=== PATIENT | female | born 1985 | race Caucasian/White ===

== ENCOUNTER 2020-04-25 12:17 | Inpatient (IN) ==
[2020-04-25] MEDS ORDERED: OXYTOCIN 30 UNITS/500 ML BAG IV PRN ×2 (13:12)
--- NOTE | 2020-04-25 13:18 | History & Physical Report ---
Date of Service April 25, 2020 Assessment & Plan (1) : 34 y/o G1 at 39w4d presenting with PROM, decreased FM VSS Fetus cat 2 but reassuring, improved with maternal resuscitation Labor - will augment with pitocin GBS neg Epidural PRN Present on Admission?: Yes (2) Beta thalassemia, heterozygous: CBC ordered per protocol T&S on admission for hx anemia Present on Admission?: Yes History of Present Illness Chief Complaint: Decreased FM, PROM Primary Care Provider: NO PCP 34 y/o G1 at 39w4d w/ EDC 04/28/20 by LMP 07/23/19 presenting with LOF since 1AM as well as decreased FM today. Has started feeling a little bit of movement since coming to L&D. Minimal contractions. -VB. 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, s/p heme consult - no intervention acutely, baby will need testing Hypothyroid s/p thyroidectomy CF carrier Anemia Allergies Allergy/AdvReac Type Severity Reaction Status Date / Time No Known Drug Allergies Allergy Verified 04/21/20 15:39 Home Medications Home Medications Medication Instructions Recorded Confirmed Type [id number]-[id number] 3-fat com #1 27 1 cap PO DAILY cap 05/29/19 04/25/20 History mg-1 mg-300 mg capsule cholecalciferol (vitamin D3) 50 2,000 units PO DAILY #30 tab 08/28/19 04/25/20 Rx mcg (2,000 unit) tablet ferrous gluconate 324 mg (38 mg 324 mg PO .COMPLEX #1 tab 10/21/19 04/25/20 Rx iron) tablet omega-3 fatty acids 1,250 mg 1,250 mg PO DAILY #30 cap 10/21/19 04/25/20 Rx capsule levothyroxine 200 mcg tablet 200 mcg PO DAILY #90 tab 11/17/19 04/25/20 Rx levothyroxine 25 mcg tablet 25 mcg PO DAILY #90 tab 12/15/19 04/25/20 Rx breast pump #1 ea 03/22/20 04/21/20 Rx Patient History Medical History Anemia Benitez anemia carrier Beta Thal Encounter for anatomic survey Hx of varicella Iatrogenic hyperthyroidism Post-surgical hypothyroidism Surgical History H/O thyroidectomy Hx of tonsillectomy [place] teeth removed Social History Smoking Status: Never smoker Second Hand Exposure: No; Do You Dip or Chew Tobacco: No; Tobacco Cessation Education Requested by Patient: No Hx Alcohol Use: No Hx Substance Use: No Preferred Language: [place] Communication Ability: Effective Technology Applications Teacher Required: No Beliefs That Will Affect Care: None marital status: marital status details: Moustapha (34) [phone] Current Living Situation: Spouse Current Living Situation Comment: lives with Spouse, no pets current occupational status: student current occupation: Grad student Other Information That Helps Us Care for You: No Feels Safe at Home: Yes Safety Concerns: Feels Safe At This Time Assistive Devices: None Physical Exam Constitutional: well developed and well nourished; no acute distress Respiratory: normal respiratory effort; no labored breathing Gastrointestinal (Abdomen): Percussion/Palpation: abdomen soft (gravid); abdomen nontender Genitourinary: Manual OB Exam: + cervical dilation 1 cm, + cervical effacement 50%, + station (-3) and + amniotic fluid (+pooling) nitrazine positive and ferning present OB Exam Monitor Tracing: + external uterine monitor used (irritability) and + category II (155/mod/+accel/+intermittent variables) Results & Data ([facility]) Vital Signs (Past 12 Hours) Vital Signs Pulse Resp BP 04/25/20 12:44 93 H 113/75 04/25/20 12:33 93 H 16 110/74 04/25/20 12:27 126 H 110/74 Laboratory Results AB+ Rubella imm RPR NR Hep B neg HIV neg -cfDNA, MSAFP, SMA +CF carrier +betal thal carrier Code Status & VTE Plan VTE Prophylaxis Plan VTE Prophylaxis will be ordered: Yes Coding Level of Care Code None Diagnoses Z34.90 Beta thalassemia, heterozygous D56.3
[2020-04-25 13:30] LABS: Hemoglobin 10.3 g/dL (12.0-16.0); Mean Corpuscular Hemoglobin 21.2 pg (25-34); Mean Corpuscular Hgb Conc 32.2 g/dL (32-36); Mean Corpuscular Volume 65.8 fL (80-100); Platelet Count 152 K/uL (130-400); RDW Coefficient of Variation 14.8 % (11.5-14.5); RDW Standard Deviation 34.4 fL (36.4-46.3); Red Blood Count 4.86 M/uL (4.2-5.4); White Blood Count 8.21 K/uL (4.8-10.8)
[2020-04-25] MEDS: LACTATED RINGER'S 1,000 ML IV PRN ×3 (13:35→22:48)
--- NOTE | 2020-04-25 15:42 | Labor Progress Brief Note ---
Date of Service April 25, 2020 Subjective Bouncing on peanut ball, comfortable Assessment & Plan (1) : 34 y/o G1 at 39w4d presenting with PROM, decreased FM VSS Fetus cat 1 Labor - pit at 4, continue to titrate GBS neg Epidural PRN (2) Beta thalassemia, heterozygous: CBC ordered per protocol T&S on admission for hx anemia Admission and Anticipated Discharge Date Admission Date: April 25, 2020 Physical Exam Constitutional: well developed and well nourished; no acute distress Genitourinary: OB Exam Monitor Tracing: + external FHT monitor used, + external uterine monitor used (q3min) and + category I (145/mod/+accel/-decel) Results & Data ([facility]) Vital Signs (Past 12 Hours) Vital Signs Pulse Resp BP 04/25/20 15:00 77 108/52 L 04/25/20 12:44 93 H 113/75 04/25/20 12:33 93 H 16 110/74 04/25/20 12:27 126 H 110/74 Coding Level of Care Code None Diagnoses Z34.90 Beta thalassemia, heterozygous D56.3
--- NOTE | 2020-04-25 17:17 | Labor Progress Brief Note ---
Date of Service April 25, 2020 Subjective Contractions more uncomfortable Assessment & Plan (1) : 34 y/o G1 at 39w4d presenting with PROM, decreased FM VSS Fetus cat 1 Labor - pit at 5, continue to titrate GBS neg Epidural PRN (2) Beta thalassemia, heterozygous: CBC ordered per protocol T&S on admission for hx anemia Admission and Anticipated Discharge Date Admission Date: April 25, 2020 Physical Exam Genitourinary: Manual OB Exam: + cervical dilation 2 cm, + cervical effacement 50% and + station (-3) OB Exam Monitor Tracing: + external FHT monitor used, + external uterine monitor used (q4-5) and + category I (145/mod/+accel/-decel) Results & Data ([facility]) Vital Signs (Past 12 Hours) Vital Signs Pulse Resp BP 04/25/20 16:57 90 113/66 04/25/20 16:03 71 113/66 04/25/20 15:00 77 108/52 L 04/25/20 12:44 93 H 113/75 04/25/20 12:33 93 H 16 110/74 04/25/20 12:27 126 H 110/74 Coding Level of Care Code None Diagnoses Z34.90 Beta thalassemia, heterozygous D56.3
[2020-04-25] MEDS ORDERED: BUPIVACAINE 0.25% 30 ML VIAL ONE (21:46)
[2020-04-25] MEDS ORDERED: ePHEDrine sulfate 50 MG/ML AMP ONE (21:46)
[2020-04-25] MEDS ORDERED: fentaNYL citrate 100 MCG/2 ML VIAL ONE (21:46)
[2020-04-25] MEDS ORDERED: fentaNYL 2MCG/ML ROPIV 1.25MG/ML 100 ML BAG EPI ONE (21:47)
--- NOTE | 2020-04-25 21:53 | Labor Progress Brief Note ---
Date of Service April 25, 2020 Subjective Contractions more uncomfortable Assessment & Plan (1) : 34 y/o G1 at 39w4d presenting with PROM, decreased FM VSS Fetus cat 1 Labor - pit at 6, continue to titrate GBS neg Epidural - pt desires epidural now (2) Beta thalassemia, heterozygous: CBC ordered per protocol T&S on admission for hx anemia Admission and Anticipated Discharge Date Admission Date: April 25, 2020 Physical Exam Genitourinary: Manual OB Exam: + cervical dilation 3 cm, + cervical effacement 70% and + station (-3) OB Exam Monitor Tracing: + external FHT monitor used, + external uterine monitor used (q3-6) and + category I (145/mod/+accel/-decel) Results & Data ([facility]) Vital Signs (Past 12 Hours) Vital Signs Temp Pulse Resp BP 04/25/20 21:02 97.7 F 76 111/64 04/25/20 20:00 18 04/25/20 19:59 75 121/82 04/25/20 19:01 97.7 F 04/25/20 18:58 71 115/66 04/25/20 18:19 69 99/56 L 04/25/20 18:00 70 106/71 04/25/20 16:57 90 113/66 04/25/20 16:03 98.2 F 71 18 113/66 04/25/20 15:00 98.8 F 77 18 108/52 L 04/25/20 12:44 98.8 F 93 H 16 113/75 04/25/20 12:33 93 H 16 110/74 04/25/20 12:27 126 H 110/74 Coding Level of Care Code None Diagnoses Z34.90 Beta thalassemia, heterozygous D56.3
[2020-04-25] MEDS ORDERED: ONDANSETRON INJ 2 MG/ML 2 ML VIAL IV PRN (22:41)
[2020-04-25] MEDS ORDERED: DiphenhydrAMINE HCL 50 MG/ML VIAL IV PRN (22:41)
[2020-04-25] MEDS ORDERED: NALOXONE HCL 1 MG in SODIUM CHLORIDE 0.9% 1000ML 1,000 ML IV PRN (22:41)
[2020-04-25] MEDS ORDERED: fentaNYL 2MCG/ML ROPIV 1.25MG/ML 100 ML BAG EPI PRN (22:41)
[2020-04-25] MEDS ORDERED: ePHEDrine sulfate 50 MG/ML AMP IV PRN (22:41)
[2020-04-25] MEDS ORDERED: NALOXONE HCL 0.4 MG/1 ML VIAL/CARP IV PRN (22:41)
--- NOTE | 2020-04-25 22:48 | Anesthesiology Consultation ---
Date of Service April 25, 2020 Covid 19 negative on 04/19/20. Assessment & Plan Chart Review Chart Review: Patient NOT seen in Pre Admission Testing and Acceptable Risk for Labor Epidural Consults Requested none ASA ASA2 Proposed Anesthesia Anesthesia Type: Labor Epidural and CSE Risk / Benefits Reviewed With: PT / POA / Parent / Guardian, Accepts Plan and Informed Consent Obtained History Height/Weight Weight: 87 kg Allergies Allergy/AdvReac Type Severity Reaction Status Date / Time No Known Drug Allergies Allergy Verified 04/21/20 15:39 Medications Home Medications Medication Instructions Recorded Confirmed Last Taken ZCC-evai-OC-omega 3-fat com #1 27 1 cap PO DAILY cap 05/29/19 04/25/20 04/24/20 mg-1 mg-300 mg capsule cholecalciferol (vitamin D3) 50 2,000 units PO DAILY #30 tab 08/28/19 04/25/20 04/24/20 mcg (2,000 unit) tablet ferrous gluconate 324 mg (38 mg 324 mg PO .COMPLEX #1 tab 10/21/19 04/25/20 04/23/20 iron) tablet omega-3 fatty acids 1,250 mg 1,250 mg PO DAILY #30 cap 10/21/19 04/25/20 04/24/20 capsule levothyroxine 200 mcg tablet 200 mcg PO DAILY #90 tab 11/17/19 04/25/20 04/25/20 08:30 levothyroxine 25 mcg tablet 25 mcg PO DAILY #90 tab 12/15/19 04/25/20 04/25/20 08:30 breast pump #1 ea 03/22/20 04/21/20 Unknown Active Medications Generic Name Dose Route Start Last Admin Trade Name Freq PRN Reason Stop Dose Admin Lactated Ringer's 1,000 mls @ 125 mls/hr 04/25/20 13:12 04/25/20 22:48 Lr IV 04/27/20 13:11 125 mls/hr .Q8H PRN Administration L&D Protocol Protocol Oxytocin 30 units in 500 mls @ 6 mls/hr 04/25/20 13:12 04/25/20 20:40 Pitocin IV 04/27/20 13:11 0.36 units/hr .Q24H PRN 6 mls/hr Labor Induction/Augmentation Titration Protocol 0.36 UNITS/HR NPO Date Last Intake of Fluids: 04/25/20 Time Last Intake of Fluids: 21:00 Date Last Intake of Solids: 04/25/20 Time Last Intake of Solids: 09:00 Past Medical History Medical History Anemia Benitez anemia carrier Beta Thal Encounter for anatomic survey Hx of varicella Iatrogenic hyperthyroidism Post-surgical hypothyroidism Thalassemia carrier Exercise / Class Metabolic Activity II 4-5 Yardwork/Stairs/Walk up hill Past Surgical History Surgical History H/O thyroidectomy History of breast augmentation Hx of tonsillectomy [place] teeth removed Past Anesthesia History No Hx of Anesthesia Complications and No Family Hx of Anesthesia Complications History of PONV No Hx of PONV and No Hx of Motion Sickness Social History Smoking Status: Never smoker Do You Dip or Chew Tobacco: No Hx Alcohol Use: No Hx Substance Use: No Review of Systems no chest pain or sob Physical Exam Vital Signs Last Vital Signs Temp 36.5 C 04/25/20 21:02 Pulse 84 04/25/20 22:41 Resp 18 04/25/20 22:30 BP 111/73 04/25/20 22:20 Pulse Ox 100 04/25/20 22:41 ENMT Mouth: no TMJ abnormality Thyromental Distance: > or= 3.5 Finger Breadths Mallampati Class: II Neck normal visual inspection Respiratory normal respiratory effort Auscultation: lungs clear to auscultation bilaterally Cardiovascular Rate/Rhythm: regular rate and regular rhythm Musculoskeletal Spine: normal cervical ROM Neurologic moves all extremities Psychiatric Orientation: alert and oriented x 3 Testing Laboratory Results 04/25/20 13:18 Blood Type AB Positive 04/25/20 13:18 Antibody Screen NEGATIVE 04/25/20 13:18
[2020-04-26] MEDS: LACTATED RINGER'S 1,000 ML IV PRN (02:45)
[2020-04-26] MEDS ORDERED: LIDOCAINE/EPINEPHRINE 2% 1:200,000 20 ML SDV ONE (03:20)
[2020-04-26] MEDS ORDERED: fentaNYL citrate 100 MCG/2 ML VIAL ONE (03:21)
[2020-04-26] MEDS ORDERED: CITRIC ACID/SODIUM CITRATE 15 ML UDC ONE (03:21)
[2020-04-26] MEDS ORDERED: MoRPHine SULFATE PF 1 MG/ML 10 ML AMP/VIAL ONE (03:23)
[2020-04-26] MEDS ORDERED: AZITHROMYCIN 500 MG in DEXTROSE 5% 250 ML IV STA (03:23)
[2020-04-26] MEDS ORDERED: OXYTOCIN 10 UNITS/ML VIAL ONE ×2 (03:24→04:17)
--- NOTE | 2020-04-26 03:26 | Labor Progress Brief Note ---
Date of Service April 26, 2020 Subjective Comfortable with epidural, however recurrent late decels noted despite resuscitation during augmentation Assessment & Plan (1) : At this point, fetus has resuscitated following d/c of pit however discussed with patient that this is second time that pit has been d/c'd due to significant decel and in between, while on pit of 2-3, has still had lates despite maternal resuscitation. Recommend CS due to inability to augment and NRFHT remote from delivery. Risks including infection, bleeding, injury to adjacent structures reviewed and patient verbalized understanding. Pt and hu sband given ampl time for questions and they were answered to their satisfaction. Pitocin d/c'd. Consent reviewed and signed, anesthesia and peds made aware. Admission and Anticipated Discharge Date Admission Date: April 25, 2020 Physical Exam Physical Exam: AAO x 3, NAD Unlabored respirations SVE 3/75/-3 EFM 150/min-mod/-accels/repetitive late decels with contractions at pit of 2 and 3 with 2 large decels requiring discontinuation of pit for resuscitation Results & Data ([facility]) Vital Signs (Past 12 Hours) Vital Signs Temp Pulse Resp BP Pulse Ox 04/26/20 03:21 78 100 04/26/20 03:16 81 100 04/26/20 03:11 81 100 04/26/20 03:07 82 139/79 04/26/20 03:06 83 100 04/26/20 03:01 83 100 04/26/20 02:56 98 H 100 04/26/20 02:51 80 97 04/26/20 02:46 95 H 98 04/26/20 02:41 78 97 04/26/20 02:38 91 H 107/64 04/26/20 02:36 81 97 04/26/20 02:35 98.4 F 04/26/20 02:31 70 97 04/26/20 02:30 18 04/26/20 02:26 78 97 04/26/20 02:24 75 97/52 L 04/26/20 02:21 71 98 04/26/20 02:16 82 98 04/26/20 02:11 77 97 04/26/20 02:09 74 101/53 L 04/26/20 02:06 80 98 04/26/20 02:01 88 98 04/26/20 02:00 18 04/26/20 01:56 91 H 96 04/26/20 01:52 82 92/54 L 04/26/20 01:51 84 97 04/26/20 01:46 79 96 04/26/20 01:41 79 96 04/26/20 01:36 79 96 04/26/20 01:31 80 96 04/26/20 01:30 18 04/26/20 01:26 89 97 04/26/20 01:22 68 110/55 L 04/26/20 01:21 70 97 04/26/20 01:16 69 97 04/26/20 01:11 75 97 04/26/20 01:08 72 112/59 L 04/26/20 01:06 72 97 04/26/20 01:03 98.6 F 04/26/20 01:01 68 97 04/26/20 01:00 18 04/26/20 00:56 74 97 04/26/20 00:53 71 105/56 L 04/26/20 00:51 65 100 04/26/20 00:46 68 100 04/26/20 00:41 68 100 04/26/20 00:38 66 103/57 L 04/26/20 00:36 71 100 04/26/20 00:31 69 100 04/26/20 00:30 18 04/26/20 00:26 68 100 04/26/20 00:23 68 106/58 L 04/26/20 00:21 69 100 04/26/20 00:16 69 100 04/26/20 00:11 66 100 04/26/20 00:07 68 109/56 L 04/26/20 00:06 70 100 04/26/20 00:01 71 100 04/26/20 00:00 69 18 110/59 L 04/25/20 23:56 72 100 04/25/20 23:55 71 109/56 L 04/25/20 23:51 77 105/52 L 100 04/25/20 23:46 83 98 04/25/20 23:41 73 97 04/25/20 23:40 71 101/56 L 04/25/20 23:37 73 98/57 L 04/25/20 23:36 77 98 04/25/20 23:31 76 99/57 L 98 09/28/20 23:30 18 04/25/20 23:27 80 107/65 04/25/20 23:26 83 98 04/25/20 23:21 88 104/55 L 97 04/25/20 23:16 93 H 98 04/25/20 23:15 96 H 18 109/60 04/25/20 23:13 86 99/52 L 04/25/20 23:11 86 91/52 L 98 04/25/20 23:10 83 18 100/53 L 04/25/20 23:07 83 99/59 L 04/25/20 23:06 87 97 04/25/20 23:05 86 18 99/66 L 04/25/20 23:03 97.5 F L 85 107/62 04/25/20 23:01 85 110/58 L 95 04/25/20 23:00 96 H 18 93 04/25/20 22:59 80 107/58 L 04/25/20 22:57 89 113/61 04/25/20 22:56 84 100 04/25/20 22:55 78 114/64 04/25/20 22:51 88 100 04/25/20 22:49 88 94 04/25/20 22:46 81 99 04/25/20 22:41 84 100 04/25/20 22:36 84 94 04/25/20 22:31 82 100 04/25/20 22:30 18 04/25/20 22:27 90 94 04/25/20 22:26 83 100 04/25/20 22:21 100 H 100 04/25/20 22:20 86 111/73 94 04/25/20 22:16 92 H 100 04/25/20 21:02 97.7 F 76 111/64 04/25/20 20:00 18 04/25/20 19:59 75 121/82 04/25/20 19:01 97.7 F 04/25/20 18:58 71 115/66 04/25/20 18:19 69 99/56 L 04/25/20 18:00 70 106/71 04/25/20 16:57 90 113/66 04/25/20 16:03 98.2 F 71 18 113/66 Coding Level of Care Code None Diagnoses Z34.90
[2020-04-26] MEDS ORDERED: KETOROLAC 30 MG/ML VIAL IV PRN (03:28)
[2020-04-26] MEDS ORDERED: MoRPHine SULFATE PF 1 MG/ML 10 ML AMP/VIAL EPI ONE (03:28)
[2020-04-26] MEDS ORDERED: ePHEDrine sulfate 50 MG/ML AMP IV PRN (03:28)
[2020-04-26] MEDS ORDERED: DiphenhydrAMINE HCL 50 MG/ML VIAL IV PRN ×2 (03:28→21:29)
[2020-04-26] MEDS ORDERED: LACTATED RINGER'S 500 ML IV PRN (03:28)
[2020-04-26] MEDS ORDERED: HYDROmorphone INJ 0.5 MG/0.5 ML SYR IV PRN (03:28)
[2020-04-26] MEDS ORDERED: NALOXONE HCL 0.08 MG in SYRINGE 1.8 ML IV PRN (03:28)
[2020-04-26] MEDS ORDERED: NALOXONE HCL 0.4 MG/1 ML VIAL/CARP IV PRN (03:28)
[2020-04-26] MEDS ORDERED: NALOXONE HCL 1 MG in SODIUM CHLORIDE 0.9% 1000ML 1,000 ML IV PRN (03:28)
[2020-04-26] MEDS ORDERED: ONDANSETRON INJ 2 MG/ML 2 ML VIAL IV PRN ×2 (03:28→21:28)
[2020-04-26] MEDS ORDERED: CEFAZOLIN 2000MG 2,000 MG/15 ML SYR IV SCH ×2 (03:30→06:00)
[2020-04-26] MEDS ORDERED: SODIUM CHLORIDE 0.9% 1000ML 1,000 ML IV SCH (03:30)
[2020-04-26] MEDS ORDERED: DC INTRASPINAL MORPHINE SCH (03:30)
[2020-04-26] MEDS ORDERED: NO NARCOTICS OR SEDATIVES SCH (03:30)
[2020-04-26] MEDS ORDERED: CITRIC ACID/SODIUM CITRATE 15 ML UDC PO SCH ×2 (03:30→06:00)
[2020-04-26] MEDS ORDERED: ONDANSETRON INJ 2 MG/ML 2 ML VIAL ONE (03:50)
[2020-04-26] MEDS ORDERED: PHENYLEPHRINE 100MCG/ML 5ML SYR ONE (03:50)
--- NOTE | 2020-04-26 05:40 | Operative Report ---
PG Post Operative Report Pre & Post Diagnosis Operation Date: 04/26/20 03:00 Pre-Op Diagnosis: Inability to augment; nonreassuring heart rate; remote from delivery Post-Op Diagnosis: Inability to augment; nonreassuring heart rate; delivery of a live male child at 0413 I identified the patient and participated in the time-out.: Yes Procedure Operation Date: 04/26/20 03:00 Actual Procedures p Section in LD(Bilateral) - Angie Tovar MD Surgeon Angie Tovar MD Sign Erector None Estimated Blood Loss 800 Findings Consistent with Post-Op Diagnosis Normal appearing bilateral fallopian tubes and ovaries. Uterus was within normal limits with small serosal fibroid noted posteriorly. Viable male weight 8lb and 0.2ozs, APGARS of 9 and 9 and 1 and 5 minutes, respectively Specimens Placenta Drains [place] Anesthesia Type L&D Only Epidural Exists Complications none Disposition Accompanied Patient To Recovery: Yes Disposition: L&D Indications Gio is a 34 y/o G1 at 39w5d who presented 1 day ago with complaints of leaking of fluid and decreased movement. On admission she was found to have prelabor rupture of membranes and cervical exam was 1/50/-3. resuscitation was performed and category 1 tracing was achieved. Augmentation was initiated with oxytocin. She received an epidural for pain control and progressed to approximately 3cm. Approximately an hour following the epidural, cat 2 tracing was noted with late decels. There was subsequently a large decel requiring oxytocin to be discontinued. Following resuscitation, pitocin was able to be restarted but could not be titrated past 3 due to late decels. There was again a significant deceleration necessitating the discontinuation of oxytocin for resuscitation. Repeat exam demonstrated unchanged cervical exam. Given inability to augment and NRFHT remote from delivery, recommendation for was had with the patient. Indications, risks, benefits, alternatives to the procedure were reviewed with the patient and her . They were given ample time for questions and answered to their satisfaction. Consents were signed. Description of Procedure The patient was taken to the operating room after consents were ensured. The patient was properly identified. Spinal anesthesia was obtained without difficulty with monitoring in place. The patient was placed in a dorsal supine position with left lateral tilt. The patient was prepped and draped in normal sterile fashion. Anesthesia was tested to ensure adequate surgical levels. Pfannenstiel skin incision was performed and carried down to the underlying fascia with a knife. The fascia was then nicked in the midline and extended laterally with pickcharissa and Hidalgo scissors. The superior portion of the fascia was grasped with Kochers x2 and elevated off the underlying rectus muscles using blunt dissection. The inferior portion of the fascia was then grasped with Eliseo clamps x2 and also elevated off the underlying muscles with blunt dissection. Midline was then identified. The peritoneum was then entered and extended to provide adequate room for delivery of baby. The hand was inserted into the abdomen, uterus was noted to be clear of adhesions. Bladder blade was inserted. A low transverse uterine incision was then made in the uterus and extended bluntly in a superior to inferior fashion. head was grasped and elevated through the hysterotomy in an atraumatic fashion. The baby delivered in SHERIF position, no nuchal cord. Remainder of the body delivered without incident. Nose and mouth were bulb suctioned on the surgical field. Delayed cord clamping was performed for 30 seconds. The cord was double clamped and cut and baby was handed off to awaiting replanting machine operator. Cord segment and blood were obtained. Placenta was then expressed from the uterus. The uterus was exteriorized. Several passes were made inside the uterus to remove the remaining membranes. Attention was then turned to the hysterotomy, which was then closed with a running locked suture of 0 Vicryl on a CTX needle. An imbricating layer was then performed with 0 Monocryl. There was noted to be excellent hemostasis. The posterior cul-de-sac was then inspected and irrigated and cleaned of clot and debris. The hysterotomy was again inspected and noted to be hemostatic. The uterus was returned to the abdomen. The right and left pericolic gutters were cleaned of all clot and debris. The hysterotomy was again noted to be hemostatic. Space of Retzius was noted to be hemostatic. The fascia was then closed with a running suture of 0 Vicryl on a CT1 needle. Subcutaneous tissue was copiously irrigated and noted to be hemostatic. Subcutaneous tissue was reapproximated using 2-0 plain gut. The skin was then closed with a running suture of 4-0 Monocryl in a subcuticular fashion. At termination of the procedure, the fundal pressure was applied and a moderate amount of lochia was expressed. Pressure dressing was applied to the patient. She tolerated the procedure well. All sponge, needle, and instrument counts were correct x 2 I attest to the content of the Intraoperative Record and any orders documented therein. Any exceptions are noted below.
[2020-04-26] MEDS ORDERED: HYDROCORTISONE ACETATE 25 MG SUPP PR PRN (06:00)
[2020-04-26] MEDS ORDERED: BENZOCAINE 20% AER SPR 82.5 GM CAN EXT PRN (06:00)
[2020-04-26] MEDS ORDERED: DIPHTHERIA/TETANUS/PERTUSSIS 0.5 ML SYR/VIAL IM ONE (06:00)
[2020-04-26] MEDS ORDERED: SUPERCREAM 0.870% 15 GM JAR EXT PRN (06:00)
[2020-04-26] MEDS ORDERED: SENNA 8.6 MG TAB PO PRN (06:00)
[2020-04-26] MEDS ORDERED: LACTATED RINGER'S 1,000 ML IV SCH (06:00)
[2020-04-26] MEDS ORDERED: MAGNESIUM HYDROXIDE SUSP 30 ML UDC PO PRN (06:00)
--- NOTE | 2020-04-26 06:01 | Anesthesiology Progress Note ---
Date of Service April 26, 2020 Anesthesia Post Procedure Vital Signs Vital Signs: Temp Pulse Resp BP Pulse Ox 04/26/20 05:59 89 99 04/26/20 05:55 76 109/68 04/26/20 05:54 80 99 04/26/20 05:49 93 H 100 04/26/20 05:45 93 H 18 123/70 04/26/20 05:44 99 H 100 04/26/20 05:39 104 H 99 04/26/20 05:37 87 113/58 L 04/26/20 05:35 18 04/26/20 05:34 94 H 100 04/26/20 05:31 95 H 91 04/26/20 05:29 82 100 04/26/20 05:25 81 16 111/57 L 04/26/20 05:24 84 100 04/26/20 05:19 89 99 04/26/20 05:15 86 18 97/52 L 88 L 04/26/20 05:14 99 H 77/47 L 100 04/26/20 05:09 84 100 04/26/20 05:05 36.3 C L 95 H 18 98/60 L 04/26/20 05:04 98 H 97 04/26/20 03:36 103 H 100 04/26/20 03:31 90 100 04/26/20 03:30 18 04/26/20 03:26 80 100 04/26/20 03:21 78 100 04/26/20 03:16 81 100 04/26/20 03:11 81 100 04/26/20 03:07 82 139/79 04/26/20 03:06 83 100 04/26/20 03:01 83 100 04/26/20 03:00 18 04/26/20 02:56 98 H 100 04/26/20 02:51 80 97 04/26/20 02:46 95 H 98 04/26/20 02:41 78 97 04/26/20 02:38 91 H 107/64 04/26/20 02:36 81 97 04/26/20 02:35 36.9 C 04/26/20 02:31 70 97 04/26/20 02:30 18 04/26/20 02:26 78 97 04/26/20 02:24 75 97/52 L 04/26/20 02:21 71 98 04/26/20 02:16 82 98 04/26/20 02:11 77 97 04/26/20 02:09 74 101/53 L 04/26/20 02:06 80 98 04/26/20 02:01 88 98 04/26/20 02:00 18 04/26/20 01:56 91 H 96 04/26/20 01:52 82 92/54 L 04/26/20 01:51 84 97 04/26/20 01:46 79 96 04/26/20 01:41 79 96 04/26/20 01:36 79 96 04/26/20 01:31 80 96 04/26/20 01:30 18 04/26/20 01:26 89 97 04/26/20 01:22 68 110/55 L 04/26/20 01:21 70 97 04/26/20 01:16 69 97 04/26/20 01:11 75 97 04/26/20 01:08 72 112/59 L 04/26/20 01:06 72 97 04/26/20 01:03 37.0 C 04/26/20 01:01 68 97 04/26/20 01:00 18 04/26/20 00:56 74 97 04/26/20 00:53 71 105/56 L 04/26/20 00:51 65 100 04/26/20 00:46 68 100 04/26/20 00:41 68 100 04/26/20 00:38 66 103/57 L 04/26/20 00:36 71 100 04/26/20 00:31 69 100 04/26/20 00:30 18 04/26/20 00:26 68 100 04/26/20 00:23 68 106/58 L 04/26/20 00:21 69 100 04/26/20 00:16 69 100 04/26/20 00:11 66 100 04/26/20 00:07 68 109/56 L 04/26/20 00:06 70 100 04/26/20 00:01 71 100 04/26/20 00:00 69 18 110/59 L 04/25/20 23:56 72 100 04/25/20 23:55 71 109/56 L 04/25/20 23:51 77 105/52 L 100 04/25/20 23:46 83 98 04/25/20 23:41 73 97 04/25/20 23:40 71 101/56 L 04/25/20 23:37 73 98/57 L 04/25/20 23:36 77 98 04/25/20 23:31 76 99/57 L 98 04/25/20 23:30 18 04/25/20 23:27 80 107/65 04/25/20 23:26 83 98 04/25/20 23:21 88 104/55 L 97 04/25/20 23:16 93 H 98 04/25/20 23:15 96 H 18 109/60 04/25/20 23:13 86 99/52 L 04/25/20 23:11 86 91/52 L 98 04/25/20 23:10 83 18 100/53 L 04/25/20 23:07 83 99/59 L 04/25/20 23:06 87 97 04/25/20 23:05 86 18 99/66 L 04/25/20 23:03 36.4 C L 85 107/62 04/25/20 23:01 85 110/58 L 95 04/25/20 23:00 96 H 18 93 04/25/20 22:59 80 107/58 L 04/25/20 22:57 89 113/61 04/25/20 22:56 84 100 04/25/20 22:55 78 114/64 04/25/20 22:51 88 100 04/25/20 22:49 88 94 04/25/20 22:46 81 99 04/25/20 22:41 84 100 04/25/20 22:36 84 94 04/25/20 22:31 82 100 04/25/20 22:30 18 04/25/20 22:27 90 94 04/25/20 22:26 83 100 04/25/20 22:21 100 H 100 04/25/20 22:20 86 111/73 94 04/25/20 22:16 92 H 100 04/25/20 21:02 36.5 C 76 111/64 04/25/20 20:00 18 04/25/20 19:59 75 121/82 04/25/20 19:01 36.5 C 04/25/20 18:58 71 115/66 04/25/20 18:19 69 99/56 L 04/25/20 18:00 70 106/71 04/25/20 16:57 90 113/66 04/25/20 16:03 36.8 C 71 18 113/66 04/25/20 15:00 37.1 C 77 18 108/52 L 04/25/20 12:44 37.1 C 93 H 16 113/75 04/25/20 12:33 93 H 16 110/74 04/25/20 12:27 126 H 110/74 Pain Intensity Lower Medial Back: Pain Intensity: 2 Lower Abdomen: Pain Intensity: 2 Transfer of Care Handoff Completed per policy Notes Mental Status: alert / awake / arousable Patient Amnestic to Procedure: Yes Nausea / Vomiting: adequately controlled Pain: adequately controlled Airway Patency, RR, SpO2: stable & adequate BP & HR: stable & adequate Hydration State: stable & adequate Neuraxial Anesthesia: was administered and sensory block is resolving Anesthetic Complications: no major complications apparent and Pt Satisfied with anesthetic care
[2020-04-26] MEDS ORDERED: Nursing to Pharmacy Communication SCH (06:30)
[2020-04-26] MEDS ORDERED: OXYTOCIN 20 UNITS in LACTATED RINGER'S 1,000 ML IV SCH (06:30)
[2020-04-26] MEDS: LEVOTHYROXINE SODIUM 25 MCG TABLET PO SCH (07:04)
[2020-04-26] MEDS: LEVOTHYROXINE SODIUM 200 MCG TABLET PO SCH (07:05)
[2020-04-26] MEDS: FERROUS SULFATE 325 MG TAB PO SCH (08:51)
[2020-04-26] MEDS: PRENATAL VITAMIN 1 TAB PO SCH (08:51)
[2020-04-26] MEDS: SIMETHICONE 80 MG CHEW PO SCH ×4 (08:51→20:35)
[2020-04-26] MEDS: DOCUSATE SODIUM 100 MG CAP PO SCH ×2 (08:51→20:35)
--- NOTE | 2020-04-26 15:14 | Obstetrical Progress Note ---
Date of Service April 27, 2020 Assessment & Plan (1) : S/p elective CS for NRFHT and inability to augment, Day 1 - Feels well today. Eating well, voiding well, ambulating well. - Pain well-controlled with analgesics. - Vital signs reviewed and WNL. - Hemoglobin reviewed. 10.3 --> 7.8 (today). - Blood Type: AB+, antibody negative, GBS negative, Rubella Immune, COVID-19 negative - Continue routine post-operative care: encourage ambulation, monitor and control pain with Motrin PRN, advance diet as tolerated, monitor lochia - Encourage breast feeding. - After discharge, will have 6-wk follow-up with Dr. Tovar Admission and Anticipated Discharge Date Admission Date: April 25, 2020 Supervising Physician Co-Signing Physician Notes Resident Physician Supervision Note: I was present with [Don] during the history and exam. I discussed the case with the resident and agree with the findings and plan as documented in the note. Any exceptions or clarifications are listed here: [None] Documented By: Shannon Gerber MD, FACOG Subjective HPI Gio Caicedo is a 34 y/o female who is POD 1 following elective c- section delivery at 39 5/7 weeks for NRFHT and inability to augment with Pitocin due to recurrent late decelerations. She reports feeling well overall this morning. mild abdominal cramping and 2-3/10 pain well managed on analgesics. Voiding well. Tolerating full liquid diet overnight without difficulty. Patient has been able to ambulate some. passing gas and no bowel movement. Has persistent lochia with some improvement this morning. Currently . Review of Systems Review of Systems: ROS Denies fever or chills. Denies shortness of breath or cough. Denies chest pain. Denies breast pain. Denies dysuria. Denies leg pain or leg swelling. Denies headache or changes in vision. Physical Exam Physical Exam: PE General: Alert, oriented. No acute distress. Cardiac: Regular rate and rhythm. No murmurs. Respiratory: Clear to auscultation bilaterally a/p, no wheezes/rales/rhonchi. No increased work of breathing. Symmetrical chest rise. No respiratory distress. Abdomen: Soft, nontender, nondistended. Bowel sounds present. Uterus: Uterine fundus firm, palpable at umbilicus. Surgical scar clean and healing well. Lower Extremities: No lower extremity edema or swelling. No deep calf pain. Ronald's negative bilaterally. Results & Data ([facility]) Vital Signs (Past 12 Hours) Vital Signs Temp Pulse Pulse Resp BP BP Pulse Ox 04/26/20 14:30 16 96 04/26/20 13:35 18 96 04/26/20 12:35 18 95 04/26/20 11:50 36.7 C 76 16 96/54 L 96 04/26/20 11:38 16 96 04/26/20 10:35 16 95 04/26/20 09:35 16 98 04/26/20 08:35 37.1 C 82 18 109/68 98 04/26/20 07:40 36.8 C 78 16 105/68 95 04/26/20 07:24 81 101/61 98 04/26/20 07:20 36.8 C 18 04/26/20 07:19 80 98 04/26/20 07:17 75 94 04/26/20 07:14 78 99/56 L 97 04/26/20 07:09 92 H 99 04/26/20 07:04 85 105/66 99 04/26/20 06:59 79 98 04/26/20 06:54 78 106/58 L 97 04/26/20 06:49 75 95 04/26/20 06:44 81 110/72 99 04/26/20 06:39 82 100 04/26/20 06:34 79 18 114/76 100 04/26/20 06:29 125 H 99 04/26/20 06:24 77 106/71 100 04/26/20 06:19 82 100 04/26/20 06:14 80 112/76 99 04/26/20 06:09 85 100 04/26/20 06:06 78 109/66 04/26/20 06:05 18 04/26/20 06:04 77 100 04/26/20 05:59 89 99 04/26/20 05:55 76 18 109/68 04/26/20 05:54 80 99 04/26/20 05:49 93 H 100 04/26/20 05:45 93 H 18 123/70 04/26/20 05:44 99 H 100 04/26/20 05:39 104 H 99 04/26/20 05:37 87 113/58 L 04/26/20 05:35 18 04/26/20 05:34 94 H 100 04/26/20 05:31 95 H 91 04/26/20 05:29 82 100 04/26/20 05:25 81 16 111/57 L 04/26/20 05:24 84 100 04/26/20 05:19 89 99 04/26/20 05:15 86 18 97/52 L 88 L 04/26/20 05:14 99 H 77/47 L 100 04/26/20 05:09 84 100 04/26/20 05:05 36.3 C L 95 H 18 98/60 L 04/26/20 05:04 98 H 97 04/26/20 03:36 103 H 100 04/26/20 03:31 90 100 04/26/20 03:30 18 04/26/20 03:26 80 100 04/26/20 03:21 78 100 04/26/20 03:16 81 100 Resident Activity Tracking Resident Involvement: Resident Care Provided Care Provided: OB Delivery
[2020-04-26] MEDS ORDERED: PROMETHAZINE HCL 25 MG in SODIUM CHLORIDE 0.9% 50 ML IV PRN (21:28)
[2020-04-27 06:39] LABS: Mean Corpuscular Hgb Conc 31.8 g/dL (32-36)
[2020-04-27 06:44] LABS: Hematocrit (blood only) 24.5 % (37-47); Hemoglobin 7.8 g/dL (12.0-16.0); Mean Corpuscular Hemoglobin 21.1 pg (25-34); Mean Corpuscular Volume 66.4 fL (80-100); RDW Coefficient of Variation 14.6 % (11.5-14.5); RDW Standard Deviation 34.7 fL (36.4-46.3); Red Blood Count 3.69 M/uL (4.2-5.4); White Blood Count 12.21 K/uL (4.8-10.8)
[2020-04-27] MEDS: LEVOTHYROXINE SODIUM 200 MCG TABLET PO SCH (07:10)
[2020-04-27] MEDS: LEVOTHYROXINE SODIUM 25 MCG TABLET PO SCH (07:10)
[2020-04-27 07:14] LABS: Platelet Count 113 K/uL (130-400)
[2020-04-27 07:15] LABS: Basophilic Stippling 1+; Basophils # (auto) 0.01 K/uL (0-0.2); Basophils % (auto) 0.1 %; Eosinophils # (auto) 0.04 K/uL (0-0.5); Eosinophils % (auto) 0.3 %; Giant Platelets 1+; Immature Granulocytes # (auto) 0.03 K/uL (0.00-0.02); Immature Granulocytes % (auto) 0.2 %; Lymphocytes # (auto) 1.21 K/uL (1.2-3.4); Lymphocytes % (auto) 9.9 %; Microcytosis Present; Monocytes # (auto) 0.94 K/uL (0.11-0.59); Monocytes % (auto) 7.7 %; Neutrophils # (auto) 9.98 K/uL (1.4-6.5); Neutrophils % (auto) 81.8 %; Ovalocytes 1+; Platelet Estimate Decreased (Normal); Tear Drop Cells 1+
[2020-04-27] MEDS: PRENATAL VITAMIN 1 TAB PO SCH (08:37)
[2020-04-27] MEDS: OXYCODONE/ACETAMINOPHEN 5mg/325mg TAB PO PRN ×3 (08:37→22:08)
[2020-04-27] MEDS: SIMETHICONE 80 MG CHEW PO SCH ×4 (08:37→20:43)
[2020-04-27] MEDS: DOCUSATE SODIUM 100 MG CAP PO SCH ×2 (08:37→20:43)
[2020-04-27] MEDS: FERROUS SULFATE 325 MG TAB PO SCH (08:37)
[2020-04-27] MEDS: IBUPROFEN 600 MG TAB PO PRN ×3 (08:38→22:09)
[2020-04-27] MEDS ORDERED: bisacodyL 5 MG TABEC PO SCH (20:00)
--- NOTE | 2020-04-28 05:05 | Obstetrical Progress Note ---
Date of Service April 28, 2020 Assessment & Plan (1) : S/p elective CS for NRFHT and inability to augment, Day 2 - Feels well today. Eating well, voiding well, ambulating well. - Pain well-controlled with analgesics. - Vital signs reviewed and WNL. - Hemoglobin reviewed. 10.3 --> 7.8 (yesterday). - Blood Type: AB+, antibody negative, GBS negative, Rubella Immune, COVID-19 negative - Continue routine post-operative care: encourage ambulation, monitor and control pain with Motrin PRN, advance diet as tolerated, monitor lochia - Encourage breast feeding. - After discharge, will have 6-wk follow-up with Dr. Tovar Admission and Anticipated Discharge Date Admission Date: April 25, 2020 Supervising Physician Co-Signing Physician Notes I have reviewed the resident's note and examined the patient myself, and agree with the note above. Subjective HPI Gio Caicedo is a 34 y/o female who is POD 2 following elective c- section delivery at 39 5/7 weeks for NRFHT and inability to augment with Pitocin due to recurrent late decelerations. She reports feeling well overall this morning. mild abdominal cramping and 3-5/10 pain well managed on ibuprofen and percocet. Voiding well. Tolerating full liquid diet overnight without difficulty. Patient has been able to ambulate some. passing gas and no bowel movement. Has persistent lochia with some improvement this morning. Currently . Review of Systems 2 Review of Systems: ROS Denies fever or chills. Denies shortness of breath or cough. Denies chest pain. Denies breast pain. Denies dysuria. Denies leg pain or leg swelling. Denies headache or changes in vision. Physical Exam Physical Exam: PE General: Alert, oriented. No acute distress. Cardiac: Regular rate and rhythm. No murmurs. Respiratory: Clear to auscultation bilaterally a/p, no wheezes/rales/rhonchi. No increased work of breathing. Symmetrical chest rise. No respiratory distress. Abdomen: Soft, nontender, nondistended. Bowel sounds present. Uterus: Uterine fundus firm, palpable at umbilicus. Surgical scar clean and healing well. Lower Extremities: No lower extremity edema or swelling. No deep calf pain. Ronald's negative bilaterally. Results & Data ([facility]) Vital Signs (Past 12 Hours) Vital Signs Temp Pulse Resp BP Pulse Ox 04/28/20 00:00 36.5 C 76 18 109/72 04/27/20 20:20 36.6 C 87 16 120/85 99 Resident Activity Tracking Resident Involvement: Resident Care Provided Care Provided: OB Delivery
[2020-04-28] MEDS ORDERED: bisacodyL 10 MG SUPP PR PRN (05:26)
[2020-04-28] MEDS: LEVOTHYROXINE SODIUM 25 MCG TABLET PO SCH (06:43)
[2020-04-28] MEDS: LEVOTHYROXINE SODIUM 200 MCG TABLET PO SCH (06:43)
[2020-04-28] MEDS: SIMETHICONE 80 MG CHEW PO SCH ×4 (09:13→20:26)
[2020-04-28] MEDS: DOCUSATE SODIUM 100 MG CAP PO SCH ×2 (09:13→20:27)
[2020-04-28] MEDS: PRENATAL VITAMIN 1 TAB PO SCH (09:14)
[2020-04-28] MEDS: OXYCODONE/ACETAMINOPHEN 5mg/325mg TAB PO PRN (09:14)
[2020-04-28] MEDS: FERROUS SULFATE 325 MG TAB PO SCH (09:14)
[2020-04-28] MEDS: IBUPROFEN 600 MG TAB PO PRN ×3 (09:15→23:03)
--- NOTE | 2020-04-29 06:26 | Obstetrical Progress Note ---
Date of Service April 29, 2020 Assessment & Plan (1) S/P section: ready for d/c home, stable, routine care, f/u 6wk pp check. instructions reviewed. Day #:: 3 Subjective Ambulation: ambulating normally Voiding: no voiding problems Passing Gas:: Yes Diet Tolerance:: regular diet Lochia:: Small Feeding Type:: breast feeding using occas percocet for pain. well controlled. ready to go home. no cp or sob. Physical Exam Constitutional WD/WN, vitals as above Respiratory normal respiratory effort, lungs clear to auscultation Cardiovascular Rate/Rhythm: regular rate and regular rhythm Gastrointestinal (Abdomen) Inspection/Auscultation: abdomen normal to inspection and + abdominal surgical incision (c/d/i) Percussion/Palpation: abdomen soft; abdomen nontender Fundus firm 2cm down Musculoskeletal nt calves tr edema Neurologic grossly normal Psychiatric A+Ox3, euthymic affect Results & Data ([facility]) Vital Signs (Past 12 Hours) Vital Signs Temp Pulse Resp BP Pulse Ox 04/29/20 01:30 97.7 F 75 20 110/73 99 04/28/20 20:15 98.6 F 87 20 115/68 100
[2020-04-29] MEDS: LEVOTHYROXINE SODIUM 25 MCG TABLET PO SCH (06:52)
[2020-04-29] MEDS: LEVOTHYROXINE SODIUM 200 MCG TABLET PO SCH (06:52)
[2020-04-29] MEDS: SIMETHICONE 80 MG CHEW PO SCH (09:33)
[2020-04-29] MEDS: PRENATAL VITAMIN 1 TAB PO SCH (09:33)
[2020-04-29] MEDS: IBUPROFEN 600 MG TAB PO PRN (09:33)
[2020-04-29] MEDS: DOCUSATE SODIUM 100 MG CAP PO SCH (09:33)
[2020-04-29] MEDS: FERROUS SULFATE 325 MG TAB PO SCH (09:33)
--- NOTE | 2020-05-01 18:28 | Discharge Summary ---
Date of Service May 01, 2020 Admission HPI Per Admitting Provider 34 y/o G1 at 39w4d w/ EDC 04/28/20 by LMP 07/23/19 presenting with LOF since 1AM as well as decreased FM today. Has started feeling a little bit of movement since coming to L&D. Minimal contractions. -VB. 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, s/p heme consult - no intervention acutely, baby will need testing Hypothyroid s/p thyroidectomy CF carrier Anemia Admission Exam (Per Admitting) Constitutional well developed and well nourished; no acute distress Respiratory normal respiratory effort; no labored breathing Gastrointestinal (Abdomen) Percussion/Palpation: abdomen soft (gravid); abdomen nontender Genitourinary Manual OB Exam: + cervical dilation + 1 cm, + cervical effacement + 50%, + s tation (-3) and + amniotic fluid + nitrazine positive and + ferning present OB Exam Monitor Tracing: + external FHT monitor used, + external uterine monitor used (irritability) and + category II (155/mod/+accel/+intermit variables) Discharge Data Consultations 04/25/20 13:12 Consult Anesthesiology Stat Procedures Performed Operation Date: 04/26/20 03:00 Actual Procedures p Section in LD(Bilateral) - Angie Tovar MD Hospital Course (1) S/P section: Patient was admitted to the hospital with PROM and decreased FM. Cat 2 tracing was noted on admission. FM did improve on admission and labor was induced using oxytocin. She received an epidural for pain control. Labor continued to be augmented without significant cervical change. heart tracing was noted to have been cat 1 however became cat 2, and did not improve despite maternal resuscitation and oxytocin discontinuation. Following recovery, oxytocin was again attempted however fetus again was intolerant of labor augmentation and non-reassuring strip was noted. Given this, recommendation was for above listed procedure. See operative report for details. She was stable for discharge on POD3. Per PPD3 progress note: "ready for d/c home, stable, routine care, f/u 6wk pp check. instructions reviewed." Coding Level of Care Code None Diagnoses S/P section Z98.891
== END 2020-04-29 13:55 | disposition home or self-care (01) | DRG 788 ==
LOC: OPB 12:17 → 4S1 12:19 → 4S2 04-26 07:46